=== PATIENT | male | born 1985 | race African-American/Black ===

== ENCOUNTER 2016-07-05 15:54 | Inpatient (IN) | payer MEDICAID ==
[~2016-07-05] VITALS: Ht 185.4 cm; Wt 79.4 kg
[2016-07-05 15:58] VITALS: BP 148/100
[2016-07-05 16:26] LABS: BASO # 0.1 10*3/uL (0.0-0.1); BASO % 0.5 % (0.0-1.0); EOS # 0.2 10*3/uL (0.0-0.4); EOS % 1.9 % (1.0-4.0); HEMATOCRIT 39.9 % (42.0-52.0); HEMOGLOBIN 13.7 g/dl (14.0-18.0); LYMPH % 21.2 % (27.0-41.0); MEAN CELL VOLUME 93.7 fl (80.0-94.0); MEAN CORPUSCULAR HGB 32.2 pg (27.0-31.0); MEAN CORPUSCULAR HGB CONC 34.3 g/dl (33.0-37.0); MEAN PLATELET VOLUME 9.5 fl (9.6-12.3); MONO # 0.7 10*3/uL (0.1-1.0); MONO % 7.4 % (3.0-9.0); NEUT # 6.4 10*3/uL (2.3-7.9); NEUT % 68.8 % (47.0-73.0); PLATELET COUNT AUTOMATED 249 10*3/uL (130-400); RED BLOOD COUNT 4.26 10*6/uL (4.50-5.90); RED CELL DISTRI WIDTH 12.4 % (0-14.5); WHITE BLOOD COUNT 9.3 10*3/uL (4.8-10.8)
[2016-07-05] MEDS ORDERED: XANAX0.5 MG PO (16:31)
[2016-07-05] MEDS ORDERED: AMBIEN10 M1 PO (16:32)
[2016-07-05 16:36] VITALS: BP 125/89
[2016-07-05 16:40] LABS: ALBUMIN 4.1 gm/dl (3.1-4.5); ALKALINE PHOSPHATASE 54 U/L (45-117); BILIRUBIN, TOTAL 0.4 mg/dl (0.2-1.0); BUN 11 mg/dl (7-24); CARBON DIOXIDE 28 mmol/L (21-32); CHLORIDE 107 mmol/L (98-107); EST GLOM FILT AFRICAN AMERICAN > 60 ml/min; GLUCOSE 85 mg/dL (65-99); POTASSIUM 3.6 mmol/L (3.5-5.1); SGOT/AST 19 IU/L (3-35); SGPT/ALT 22 U/L (12-78); SODIUM 146 mmol/L (136-145); TOTAL PROTEIN 7.2 gm/dL (6.4-8.2)
[2016-07-05 17:20] LABS: BILIRUBIN NEGATIVE (NEGATIVE); BLOOD NEGATIVE (NEGATIVE); CLARITY CLEAR (CLEAR); COLOR YELLOW (YELLOW); GLUCOSE NEGATIVE (NEGATIVE); KETONE 1+ (NEGATIVE); LEUKO ESTERASE NEGATIVE (NEGATIVE); NITRITE NEGATIVE (NEGATIVE); PH 7.5 (5.0-9.0); PROTEIN NEGATIVE (NEGATIVE)
[2016-07-05 17:29] LABS: URINE AMPHETAMINES < 1000 (1000ng/ml); URINE BARBITURATES < 200 (200ng/ml); URINE COCAINE < 300 (300ng/ml)
[2016-07-05 17:32] LABS: RBC 0-2 rbc/hpf (0-2); URINE REFLEX COMMENT NO (NO)
[2016-07-05 20:00] VITALS: BP 147/72
[2016-07-06] VITALS: BP 112/72
[2016-07-06 04:00] VITALS: BP 130/72
[2016-07-06 08:00] VITALS: BP 130/67
[2016-07-06 12:00] VITALS: BP 141/76
[2016-07-06 16:00] VITALS: BP 139/84
[2016-07-06 20:00] VITALS: BP 155/87
[2016-07-07] VITALS: BP 160/79
[2016-07-07 08:00] VITALS: BP 150/76
[2016-07-07] MEDS ORDERED: VITAMIN B-11 TAB PO (09:48)
[2016-07-07] MEDS ORDERED: THERA TABS1 TAB PO (09:48)
[2016-07-07] MEDS ORDERED: NATURE'S BLEND F1 MG PO (09:48)
[2016-07-07 12:00] VITALS: BP 156/86
== END 2016-07-07 13:18 | disposition home or self-care (01) | DRG 897 ==
LOC: ED 15:54 → EDHOLD 16:28 → 4E 16:28 → EDHOLD 16:43 → 4E 16:46
PROVIDERS: Student in an Organized Health Care Education/Training Program
DX: F13.239 Sedative, hypnotic or anxiolytic dependence with withdrawal, unspecified (principal); E87.0 Hyperosmolality and hypernatremia; F41.1 Generalized anxiety disorder; F17.200 Nicotine dependence, unspecified, uncomplicated; G62.9 Polyneuropathy, unspecified; Z79.899 Other long term (current) drug therapy; Z71.6 Tobacco abuse counseling; Z82.49 Family history of ischemic heart disease and other diseases of the circulatory system